=== PATIENT | male | born 1950 | race Caucasian/White ===

== ENCOUNTER 2020-12-17 14:59 | Outpatient (RCR) | payer MEDICARE, SELFPAY ==
[2017-04-27 11:19] VITALS: BMI 19.3
== END 2021-02-22 23:59 ==
LOC: IMMUN 14:59
PROVIDERS: PCP Family Medicine; Referring Provider Family Medicine; Visit Provider Family Medicine
DX: Z23 Encounter for immunization (principal)
CPT/HCPCS: 0001A; 0002A; 91300

== ENCOUNTER 2022-03-20 21:04 | Emergency (ER) | payer MEDICARE, SELFPAY ==
[2022-03-20 21:05] VITALS: BP 139/91; PULSE 117; RESP 16; TEMP 37.2; O2SAT 93; BMI 20.9
--- NOTE | 2022-03-20 21:43 | EDS_ITS ---
HPI History of Present Illness Chief Complaint: Complaint Detail of Chief Complaint: Urinary retention Informant: patient Onset/Context/Timing Onset: Yesterday Context: Sudden Onset Timing: Intermittent Quality: Unable to urinate since yesterday Location: Current Severity: Gone (Patient used his neighbor's catheter. Neighbor catheterized patient.) Maximum Severity: Severe Worsened by: History of enlarged prostate Relieved by: Neighbor catheterizing patient Associated Symptoms Associated Symptoms: Suprapubic discomfort Narrative Narrative: Patient is a 71-year-old male with history of hypercholesterolemia, hypertension and diabetes who presents because he was unable to urinate since yesterday. Neighbor apparently has the same problem. He will hold his neighbor to catheterize him. He had significant amount of urine. He does not recall when his last prostate exam was done. He has had problems with stream for some time. He presently has no symptoms. Prior similar symptoms: No Recent Illness/Hospitalization: No [facility] Medical History (Updated 03/20/22 @ 22:[address] Cornel Peralta MD) HTN (hypertension) Home Medications alfuzosin 10 mg tablet,extended release 24 hr (Uroxatral) 10 mg PO DAILY 04/18/17 [History Last Taken Unknown] atorvastatin 10 mg tablet 10 mg PO DAILY 04/18/17 [History Last Taken Unknown] olmesartan 40 mg-hydrochlorothiazide 25 mg tablet (Benicar HCT) 1 tab PO DAILY 04/18/17 [History Last Taken Unknown] verapamil 240 mg 24 hr capsule,extended release 240 mg PO DAILY 04/18/17 [History Last Taken 04/27/17 06:00] oxycodone-acetaminophen 5 mg-325 mg tablet 1 - 2 tab PO Q4H PRN PRN Pain #20 tabs 04/27/17 [Rx Last Taken Unknown] sulfamethoxazole 800 mg-trimethoprim 160 mg tablet 1 tab PO BID #14 TABLETS 03/20/22 [Rx Last Taken Unknown] Allergy/AdvReac Type Severity Reaction Status Date / Time No Known Allergies Allergy Verified 03/20/22 21:05 Family History no significant family his no significant family history Social History (Updated 03/20/22 @ 21:[address] Cornel Peralta MD) household members: none Smoking Status: Former smoker substance use type: does not use ROS ROS ED Constitutional Constitutional ED: Denies chills, fever(s), subjective, sweats or weight loss Cardiovascular Cardiovascular: Denies chest pain, orthopnea, palpitations, paroxysmal nocturnal dyspnea or racing heartbeat Respiratory/Chest Respiratory/Chest: Denies cough, dyspnea, dyspnea on exertion, orthopnea or paroxysmal nocturnal dyspnea Gastrointestinal Gastrointestinal: Reports abdominal pain; Denies constipation, diarrhea, melena, nausea or vomiting Genitourinary Genitourinary ED: Reports other Details: Inability urinate ; Denies dysuria, hematuria or urinary frequency Musculoskeletal Musculoskeletal: Denies arthralgias, back pain, myalgias or neck pain Neurologic Neurologic: Denies headache(s), paresthesias or weakness Hematologic/Lymphatic Hematologic/Lymphatic: Denies anemia or easy bruising EXAM Physical Exam Const Vital Signs: 03/20/22 21:05 Temperature 98.9 F Temperature Source Temporal Pulse Rate 117 H Respiratory Rate 16 Blood Pressure 139/91 H Blood Pressure Mean 107 Pulse Ox 93 Oxygen Delivery Method Room Air Positive well nourished and well developed General Appearance ED: well developed and NAD; Negative for cyanotic, diaphoretic or pallor HEENT Reports moist mucous membranes HEENT Narrative: Ears normal. Nares patent. Uvula midline. There is no erythema or exudate. Negative for trauma or tenderness Eyes PERRL and EOMs intact bilaterally General Eye ED: Negative for pale conjunctiva or scleral icterus Neck no lymphadenopathy, supple and no JVD Resp normal respiratory effort and clear to auscultation bilaterally Cardio regular rate, regular rhythm, S1 normal heart sound and S2 normal heart sound GI normal to inspection, nondistended, normoactive bowel sounds, non-tender and non-distended; Negative for hepatosplenomegaly Back/Spine no CVA tenderness Cervical Spine: Negative for cervical spine tenderness Thoracic Spine / Upper Back: Negative for thoracic spinal tenderness Lumbar Spine / Lower Back: Negative for lumbar spinal tenderness Extremity normal to inspection General Extremety ED: Negative for edema or tenderness General Extremity: Negative for edema Neuro oriented x3, CN's II-XII intact bilaterally and no sensory deficits noted Motor Exam: strength 5/5 throughout Psych mental status grossly normal Skin General Skin Exam: Negative for jaundice or pallor MDM MDM MDM Narrative Medical decision making narrative: Patient has an enlarged prostate on rectal exam. At 10:00 lithotomy position there is a very hard nodule noted. This raises concern for possible prostate cancer. Since patient had problems with urination will obtain basic metabolic panel to evaluate for renal injury. Flores was ordered. He will be referred to urology for follow-up. Lab Data Attestation: I reviewed the patient's lab results. Lab results narrative: Urine is consistent with infection. Urine culture was ordered. Patient received 1 g of Rocephin. Awaiting BMP results. Creatinine is elevated 1.50 from 1.25. Last creatinine level was obtained in 2017. Labs: Laboratory Results - last 24 hr 03/20/22 03/20/22 21:43 21:52 Sodium 135 L Potassium 4.2 Chloride 101 Carbon Dioxide 22.0 Anion Gap 12 BUN 25 H Creatinine 1.50 H Estim Creat Clear Calc 43.62 Est GFR (MDRD) Af Amer 59 L Est GFR (MDRD) Non-Af 49 L BUN/Creatinine Ratio 16.7 Glucose 126 H Calcium 8.8 Urine Color Yellow Urine Clarity Cloudy Urine pH 5.0 Ur Specific [place] 1.020 Urine Protein 500 H Urine Glucose (UA) Normal Urine Ketones 15 H Urine Occult Blood 250 H Urine Nitrite Negative Urine Bilirubin 1 H Urine Urobilinogen 1 H Ur Leukocyte Esterase 500 H Urine RBC > 100 SEEN Urine WBC 50-100 SEEN Ur Squamous Epith Cells 5-10 SEEN Urine Bacteria 4+ Coarse Granular Casts 5-10 SEEN Urine Mucus 0 SEEN Discharge Plan Triage Chief Complaint: Complaint ED Provider: Cornel Peralta Dx/Rx/DC Orders Clinical Impression: Acute urinary retention, Urinary tract infection, Prostate hypertrophy, Prostate nodule with urinary obstruction, Acute renal insufficiency Instructions: ED Flores Catheter, Care, ED Urinary Retention, Male, ED Bladder Infection, Male (Adult), ED Renal Insufficiency Prescriptions: New sulfamethoxazole-trimethoprim [sulfamethoxazole-trimethoprim] 800-160 mg tablet 1 tab PO BID Qty: 14 0RF No Action atorvastatin 10 MG tablet 10 mg PO DAILY Label Comments: CHOLESTEROL verapamil 240 MG capsule,ext rel. pellets 24 hr 240 mg PO DAILY Label Comments: BP olmesartan-hydrochlorothiazide [Benicar HCT] 1 TAB tablet 1 tab PO DAILY Label Comments: BP alfuzosin [Uroxatral] 10 MG tablet extended release 24 hr 10 mg PO DAILY Label Comments: PROSTATE oxycodone-acetaminophen 1 TABLET tablet 1 - 2 tab PO Q4H PRN PRN (Reason: Pain) Qty: 20 0RF Primary Care Provider: Chris Ziegler NP Referrals: Henry Wells MD [STAFF PHYSICIAN] - 5-7 Days Chris Ziegler NP, HUMIDIFIER ATTENDANT-C [Primary Care Provider] - Activity Restrictions/Additional Instructions: You will need to contact Dr. Wells's office tomorrow for follow-up in 5 to 7 days for repeat prostate exam and removal of Flores Take antibiotics until gone Disposition Disposition: Home, Self Care
[2022-03-20 21:49] LABS: Mucous, Urine 0 SEEN /hpf (<or=2+)
[2022-03-20 21:51] LABS: Glucose, Dipstick Normal (Normal); Ketone-Dipstick 15 mg/dl (Negative); Leukocyte Esterase-Dipstick 500 /ul (Negative); Nitrite-Dipstick Negative (Negative); Occult Blood-Urine 250 /ul (Negative); Protein-Dipstick 500 mg/dl (Negative); Urine Urobilinogen 1 mg/dl (Normal)
[2022-03-20 21:58] LABS: Urine Bilirubin Dipstick 1 mg/dL (Negative)
[2022-03-20 21:59] LABS: Color, Urine Yellow (Yellow); Urine Clarity Cloudy (Clear)
[2022-03-20 22:07] LABS: Red Blood Cells-Urine > 100 SEEN /hpf (0-5); Squamous Epithelial Cells - UA 5-10 SEEN /hpf (0-5); White Blood Cells 50-100 SEEN /hpf (0-5)
[2022-03-20 22:08] LABS: Bacteria 4+ /hpf (None Seen); Coarse Granular Cast 5-10 SEEN /lpf (0-5 /lpf)
[2022-03-20 22:12] LABS: Anion Gap 12 (5-15); BUN 25 mg/dL (7-18); BUN/Creat Ratio 16.7 RATIO (10-20); Calcium,Total 8.8 mg/dL (8.5-10.1); Chloride 101 mmol/L (98-107); EST Glomerular Filtration Rate 49 mL/min (>60); Est Glom Filt Rate - Afr Amer 59 mL/min (>60); Estimated Creatinine Clearance 43.62 ml/min; Glucose 126 mg/dL (74-106); Potassium 4.2 mmol/L (3.5-5.1); Sodium Level 135 mmol/L (136-145)
[2022-03-20] MEDS: Ceftriaxone 1 GM/50 ML BAG IV (22:33)
== END 2022-03-20 23:41 | disposition home or self-care (01) ==
PROVIDERS: Emergency Provider Emergency Medicine; PCP Nurse Practitioner Primary Care; Visit Provider Emergency Medicine
DX: R33.9 Retention of urine, unspecified (principal); N39.0 Urinary tract infection, site not specified; N40.1 Benign prostatic hyperplasia with lower urinary tract symptoms; N13.9 Obstructive and reflux uropathy, unspecified; Z87.891 Personal history of nicotine dependence
CPT/HCPCS: 51702; 80048; 81001; 87077; 87086; 87088; 87186; 96365; 99283; J7050; A4216

== ENCOUNTER 2022-03-24 07:55 | Emergency (ER) | payer MEDICARE, SELFPAY ==
[2022-03-24 07:57] VITALS: BP 133/78; PULSE 100; RESP 18; TEMP 36.7; O2SAT 95; BMI 19.6
--- NOTE | 2022-03-24 08:32 | EX.ED.DYSGE1 ---
HPI History of Present Illness Chief Complaint: Abn Labs Informant: patient and family Narrative Narrative: Patient was seen here on 20 March. He had a catheter placed for acute urinary retention. Creatinine was 1.5. He followed up in the office of his primary physician yesterday. Blood work was rechecked. I did just get a fax of his creatinine that went from 1.5-2.06. Patient feels fine. He has no complaints. He states he is eating and drinking. He thinks he is drinking enough fluid. The catheter is flowing well. He is getting plenty of urine. No fevers or chills. [facility] Medical History HTN (hypertension) Hyperlipidemia Home Medications alfuzosin 10 mg tablet,extended release 24 hr (Uroxatral) 10 mg PO DAILY 04/18/17 [History Last Taken Unknown] atorvastatin 10 mg tablet 10 mg PO DAILY 04/18/17 [History Last Taken Unknown] olmesartan 40 mg-hydrochlorothiazide 25 mg tablet (Benicar HCT) 1 tab PO DAILY 04/18/17 [History Last Taken Unknown] verapamil 240 mg 24 hr capsule,extended release 240 mg PO DAILY 04/18/17 [History Last Taken 04/27/17 06:00] sulfamethoxazole 800 mg-trimethoprim 160 mg tablet 1 tab PO BID #14 TABLETS 03/20/22 [Rx Last Taken Unknown] Allergy/AdvReac Type Severity Reaction Status Date / Time No Known Allergies Allergy Verified 03/24/22 07:59 Social History household members: none Smoking Status: Former smoker substance use type: does not use ROS ROS ED Constitutional Constitutional ED: Denies chills or fever(s) Eyes Eyes: Denies change in vision ENT ENT ED: Denies rhinorrhea Cardiovascular Cardiovascular: Denies chest pain or palpitations Respiratory/Chest Respiratory/Chest: Denies cough Gastrointestinal Gastrointestinal: Denies abdominal pain, diarrhea, nausea or vomiting Genitourinary Genitourinary ED: Reports other Details: No urinary complaints. Catheter draining well. Musculoskeletal Musculoskeletal: Denies back pain Integumentary Denies rash Neurologic Neurologic: Denies paresthesias or weakness Endocrine Endocrinology: Denies polydipsia or polyuria Hematologic/Lymphatic Hematologic/Lymphatic: Denies easy bleeding or easy bruising Allergic/Immunologic Allergic/Immunologic ED: Denies urticaria EXAM Physical Exam Const Vital Signs: 03/24/22 07:57 03/24/22 08:30 03/24/22 10:59 Temperature 98.0 F 98.8 F Temperature Source Temporal Oral Pulse Rate 100 97 Respiratory Rate 18 18 Respiratory Effort Normal Respiratory Pattern Normal Blood Pressure 133/78 H 127/77 H Blood Pressure Mean 96 93 Pulse Ox 95 95 Oxygen Delivery Method Room Air Room Air Positive well nourished and well developed General Appearance ED: well developed HEENT Reports moist mucous membranes Eyes EOMs intact bilaterally Neck no JVD Resp normal respiratory effort Cardio regular rate, regular rhythm and no murmurs GI normal to inspection, nondistended, normoactive bowel sounds, non-tender and non-distended GI Narrative: No pressure or palpable swelling over the bladder. Back/Spine no CVA tenderness Extremity normal to inspection Neuro oriented x3 Psych mental status grossly normal Skin no rashes or lesions noted MDM MDM MDM Narrative Medical decision making narrative: Patient patient CBC shows mild anemia. Electrolytes showed now decreasing creatinine. It was 1.5. It went up to just over 2.0. It is now coming back down. Urine shows no sign of infection. Patient's BUN to creatinine ratio is a little above 20. We have encouraged him to drink a little bit more fluids. Since the creatinine is only up about 1.25, I do not think he needs acute admission for this. He is asymptomatic. Ultrasound showed no sign of significant hydronephrosis. Catheter is draining well. He has an appointment with urologist on Sunday. I will write for repeat electrolytes on Sunday. If he develops symptoms, fevers, Flores not draining, flank pain or any other symptoms he should return. Lab Data Attestation: I reviewed the patient's lab results. Labs: Laboratory Results - last 24 hr 03/24/22 03/24/22 03/24/22 08:55 08:55 09:22 WBC 9.9 RBC 4.23 L Hgb 12.6 L Hct 38.6 L MCV 91.3 MCH 29.8 MCHC 32.6 RDW Std Deviation 44.6 H RDW Coeff of Сергей 13.2 Plt Count 271 MPV 9.9 Immature Gran % (Auto) 1.500 H Neut % (Auto) 84.0 H Lymph % (Auto) 6.2 L [place] % (Auto) 7.4 Eos % (Auto) 0.4 Baso % (Auto) 0.5 Absolute Neuts (auto) 8.3 H Absolute Lymphs (auto) 0.61 L Nucleated RBC % 0 Sodium 136 Potassium 4.5 Chloride 105 Carbon Dioxide 23.0 Anion Gap 8 BUN 36 H Creatinine 1.76 H Estim Creat Clear Calc 34.77 Est GFR (MDRD) Af Amer 49 L Est GFR (MDRD) Non-Af 41 L BUN/Creatinine Ratio 20.5 H Glucose 111 H Calcium 8.9 Urine Color Yellow Urine Clarity Clear Urine pH 5.0 Ur Specific [place] 1.010 Urine Protein 15 H Urine Glucose (UA) Normal Urine Ketones 5 H Urine Occult Blood 50 H Urine Nitrite Negative Urine Bilirubin Negative Urine Urobilinogen 1 H Ur Leukocyte Esterase 100 H Urine RBC 0-5 SEEN Urine WBC 0-5 SEEN Ur Squamous Epith Cells 0 SEEN Urine Bacteria 0 SEEN Urine Mucus 0 SEEN Radiography Diagnostic Testing: Clinical Impression(s) from Imaging Studies Renal Ultrasound 03/24/22 09:32 IMPRESSION: Mild degree of bilateral renal atrophy. No evidence of hydronephrosis. Electronically Signed: Joss Kirk MD at 10:36 EDT , Discharge Plan Triage Chief Complaint: Abn Labs ED Provider: Deangelo Shelley Dx/Rx/DC Orders Clinical Impression: Creatinine elevation, Flores catheter present Instructions: ED Flores Catheter, Care Prescriptions: No Action atorvastatin 10 MG tablet 10 mg PO DAILY Label Comments: CHOLESTEROL verapamil 240 MG capsule,ext rel. pellets 24 hr 240 mg PO DAILY Label Comments: BP olmesartan-hydrochlorothiazide [Benicar HCT] 1 TAB tablet 1 tab PO DAILY Label Comments: BP alfuzosin [Uroxatral] 10 MG tablet extended release 24 hr 10 mg PO DAILY Label Comments: PROSTATE sulfamethoxazole-trimethoprim [sulfamethoxazole-trimethoprim] 800-160 mg tablet 1 tab PO BID Qty: 14 0RF Other Ambulatory Orders: Miscellaneous Lab Procedure (Routine) Timeframe: [id number] Facility: [facility] - Location: Laboratory Ordered By: Dr. Deangelo Shelley Primary Care Provider: Chris Ziegler NP Referrals: Chris Ziegler THEATER TECHNICIAN, THEATER TECHNICIAN-C [Primary Care Provider] - 3-5 Days Activity Restrictions/Additional Instructions: Follow-up with the urologist as scheduled on Sunday. Disposition Disposition: Home, Self Care
[2022-03-24] MEDS: 0.9% Normal Saline 1,000 ML 1000 ML IV (08:47)
--- NOTE | 2022-03-24 08:57 | ED.RN ---
Pt has a leg bag on that was put in on the 4th. Bag was changed so that we can get a urine sample from him.
[2022-03-24 08:59] LABS: Absolute Lymphocyte Count 0.61 X10^3/uL (0.83-4.51); Absolute Neutrophil Count 8.3 X10^3/uL (2.0-7.7); Basophil# 0.05 X10^3/uL; Basophil% 0.5 % (0-1); Eosinophil# 0.04 X10^3/uL; Eosinophils% 0.4 % (0-5); Hematocrit 38.6 % (40-54); Hemoglobin 12.6 g/dL (13.0-16.5); Lymphocyte # 0.61 X10^3/ul (0.83-4.51); Lymphocyte % 6.2 % (19-41); Mean Corp Hgb Conc 32.6 g/dL (32-36); Mean Corpuscular Hgb 29.8 pg (27.0-32.0); Mean Corpuscular Volume 91.3 fL (80-94); Mean Platelet Vol. 9.9 fl (6.2-12.0); Monocyte# 0.73 X10^3/uL; Monocyte% 7.4 % (0-10); NRBC Flagged by Analyzer 0 % (0-5); Neutrophil # 8.31 X10^3/uL (2.7-7.7); Platelet Count 271 K/mm3 (150-450); RBC Distribution Width CV 13.2 % (11.6-14.6); RBC Distribution Width SD 44.6 fl (35.1-43.9); Red Blood Count 4.23 M/mm3 (4.6-6.2); White Blood Count 9.9 K/mm3 (4.4-11.0)
[2022-03-24 09:16] LABS: BUN 36 mg/dL (7-18); Creatinine, Serum 1.76 mg/dL (0.70-1.30); Glucose 111 mg/dL (74-106)
[2022-03-24 09:17] LABS: Anion Gap 8 (5-15); BUN/Creat Ratio 20.5 RATIO (10-20); Calcium,Total 8.9 mg/dL (8.5-10.1); Chloride 105 mmol/L (98-107); EST Glomerular Filtration Rate 41 mL/min (>60); Est Glom Filt Rate - Afr Amer 49 mL/min (>60); Estimated Creatinine Clearance 34.77 ml/min; Potassium 4.5 mmol/L (3.5-5.1); Sodium Level 136 mmol/L (136-145)
[2022-03-24 09:28] LABS: Bacteria 0 SEEN /hpf (None Seen); Mucous, Urine 0 SEEN /hpf (<or=2+); Squamous Epithelial Cells - UA 0 SEEN /hpf (0-5)
[2022-03-24 09:30] LABS: Color, Urine Yellow (Yellow); Glucose, Dipstick Normal (Normal); Ketone-Dipstick 5 mg/dl (Negative); Leukocyte Esterase-Dipstick 100 /ul (Negative); Nitrite-Dipstick Negative (Negative); Occult Blood-Urine 50 /ul (Negative); Protein-Dipstick 15 mg/dl (Negative); Urine Bilirubin Dipstick Negative (Negative); Urine Clarity Clear (Clear); Urine Urobilinogen 1 mg/dl (Normal)
--- NOTE | 2022-03-24 09:32 | US_ITS ---
STUDY: RENAL ULTRASOUND - COMPLETE REASON FOR EXAM: Male, 71 years old. JACE TECHNIQUE: Ultrasound evaluation of the kidneys was performed with real-time and static krishnamurthy-scale imaging. COMPARISON: None. FINDINGS: RIGHT KIDNEY: with mild renal atrophy. The right kidney measures 8.3 cm x 4.2 cm x 4.7 cm. There is a normal cortex of the right kidney. The renal cortex measures 1.2 cm. There is no right renal mass or cyst. There are no right renal calculi. There is no right hydronephrosis. DISTAL RIGHT URETER: There is non-visualization of the distal right ureter. There is no demonstrated right ureterovesical junction calculus. There is no demonstrated right ureteral jet. LEFT KIDNEY: with mild renal atrophy. The left kidney measures 9 cm x 4.4 cm x 5.1 cm. There is a normal cortex of the left kidney. The renal cortex measures 1.4 cm. There is no left renal mass or cyst. There are no left renal calculi. There is no left hydronephrosis. DISTAL LEFT URETER: There is non-visualization of the distal left ureter. There is no demonstrated left ureterovesical junction calculus. There is no demonstrated left ureteral jet. BLADDER: A MARSH catheter is seen within the decompressed urinary bladder. US/Kidney and Bladder IMPRESSION: Mild degree of bilateral renal atrophy. No evidence of hydronephrosis. Electronically Signed: Joss Kirk MD at 10:36 EDT ,
[2022-03-24 09:41] LABS: Red Blood Cells-Urine 0-5 SEEN /hpf (0-5); White Blood Cells 0-5 SEEN /hpf (0-5)
[2022-03-24 10:59] VITALS: BP 127/77; PULSE 97; RESP 18; TEMP 37.1; O2SAT 95
== END 2022-03-24 12:19 | disposition home or self-care (01) ==
PROVIDERS: Emergency Provider Emergency Medicine; PCP Nurse Practitioner Primary Care; Visit Provider Emergency Medicine
DX: R79.89 Other specified abnormal findings of blood chemistry (principal); E78.5 Hyperlipidemia, unspecified; Z79.899 Other long term (current) drug therapy; Z87.891 Personal history of nicotine dependence
CPT/HCPCS: 76770; 80048; 81001; 85025; 96360; 96361; 99283; J7030; A4216

== ENCOUNTER → 2022-03-27 | Outpatient (CLI) | payer MEDICARE, SELFPAY ==
[2022-03-27 09:14] LABS: Anion Gap 13 (5-15); BUN 21 mg/dL (7-18); BUN/Creat Ratio 14.3 RATIO (10-20); Chloride 99 mmol/L (98-107); Creatinine, Serum 1.47 mg/dL (0.70-1.30); EST Glomerular Filtration Rate 50 mL/min (>60); Est Glom Filt Rate - Afr Amer 60 mL/min (>60); Glucose 104 mg/dL (74-106); Potassium 3.7 mmol/L (3.5-5.1); Sodium Level 134 mmol/L (136-145)
== END | disposition home or self-care (01) ==
LOC: LAB 07:58
PROVIDERS: PCP Nurse Practitioner Primary Care; Visit Provider Emergency Medicine
DX: R79.89 Other specified abnormal findings of blood chemistry (principal)
CPT/HCPCS: 36415; 80048

== ENCOUNTER 2022-07-11 06:14 | Day surgery (SDC) | payer MEDICARE, SELFPAY ==
[2022-07-11 06:37] VITALS: BP 146/71; PULSE 112; RESP 16; TEMP 36.1; O2SAT 99; BMI 18.8
[2022-07-11] MEDS: Lactated Ringers 1,000 ML 15 ML IV (06:45)
--- NOTE | 2022-07-11 07:51 | HP.PCM_ITS ---
History and Physical Date of Admission: 07/11/22 Intake Vital Signs ? 03/24/2207:57 06/14/2208:30 Height 6 ft 6 ft Weight: 145 lb 139 lb BMI 19.6 18.8 BP 133/78 H 104/69 Blood Pressure Location ? Rt popliteal Position ? Sitting Respiration 18 16 Pulse 100 108 H Pulse Source ? Monitor Temp 98.0 F 97.3 F L Temp Source Temporal Temporal Pulse Oximetry (%) 95 95 Oxygen Delivery Method ? 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 HTN (hypertension) Hyperlipidemia Social History? household members:? none Smoking Status:? Former smoker substance use type:? does not use HPI HPI HPI: 71-year-old male here for right inguinal hernia and surveillance colonoscopy.? Patient has last colonoscopy 5 years ago and a tubular adenoma was identified and he was recommended to repeat in 5 years.? Patient denies abdominal pain or blood in the stool.? He also says that he is having right groin bulging and pain.? This happened about 6 months ago.? She was doing well since his hernia repair in 2017 until about 6 months ago when he experienced groin bulging and pain. ROS General General: No weight change, appetite, fatigue, colon cancer, breast cancer or weakness HEENT HEENT: No difficulty swallowing, eye injury, eye surgery, swollen glands or hoarseness Endo Endocrine: No thyroid disease, diabetes mellitus, thyroid cancer, Hair loss, heat intolerance or cold intolerance Skin Skin: No rash or changing moles Breast Breast: No left breast lump, right breast lump, nipple discharge, breast pain, abnormal mammogram, abnormal US or breast enlargement Musc Musculoskeletal: No back problems, arthritis, rheumatoid arthritis, gout or joint pain Cardio Cardiovascular: Yes high blood pressure; No murmur, pacemaker, heart disease, atrial fibrillation, heart attack, heart stent, palpitations, shortness of breat with exertion or chest pain Psych Psychiatric: No depression, anxiety or hearing voices Resp Respiratory: No shortness of breath, No sleep apnea, No cough, No COPD, No asthma, No emphysema and No wheezing Gastro Gastrointestinal: No abdominal pain, No nausea or vomiting, No diarrhea, No constipation, No blood in stool, No acid reflux, No hemorrhoids, No ulcers, No gallbladder problem and No black,tarry stools Dino Hematologic: No blood thinners, No blood disorders, No bleeding, No anemia and No blood clots Neuro Neurologic: No system reviewed and no additional complaints, except as documented, No as per HPI, No abnormal gait, No abnormal hearing, No abnormal movements, No abnormal speech, No behavioral changes, No burning sensations, No confusion, No convulsions, No disequilibrium, No dizziness, No localized weakness, No frequent falls, No headache(s), No lack of coordination, No loss of vision, No memory loss, No numbness, No other visual disturbances, No radicular pain, No restless legs, No sensory deficit, No syncope, No tingling, No tremor(s), No weakness and No other Exam Const General: cooperative Orientation: alert and oriented x3 [facility] Head: normal to inspection Neck Neck: normal visual inspection and full ROM Chest Chest palpation & inspection: normal inspection of the chest Resp Effort & Inspection: normal respiratory effort Auscultation: clear to auscultation bilaterally Cardio Rate: regular rate Rhythm: regular rhythm GI Inspection: non-distended Palpation: soft, hernia indirect inguinal on the right and nontender Skin General: no rashes or lesions noted Neuro General: patient alert and patient oriented x3 Extrem General: full ROM Psych Appearance: grossly normal Mental Status: mental status grossly normal Assessment and Plan Assessment and Plan (1) Recurrent right inguinal hernia: ?Status:?Acute ?Plan: The patient has recurrence of right inguinal hernia and I offered open inguinal hernia repair with mesh.? I discussed this with him in detail as well as the risks including but not limited to bleeding, infection, injury to spermatic cord, injury to bowel, chronic groin pain or recurrence.? Patient or stands the risks and will proceed with open right inguinal hernia repair with mesh. (2) History of colon polyps: ?Status:?Acute ?Plan: Patient had a tubular adenoma during his last colonoscopy in 2017.? I recommend that he have a repeat colonoscopy at least 1 week prior to hernia repair. I explained endoscopy in detail to the patient.? I explained the risks including but not limited to stroke or heart attack with anesthesia, perforation of the GI tract, bleeding, infection.? I explained that any of these could necessitate further emergency surgery.? The patient understands and all questions were answered sufficiently.? The patient wishes to proceed with procedure. Praveen Rocha MD Pager: [facility] [address] [place] [address], [address] [place] [address] Office: I have re-examined the patient. There are no clinical changes since date of exam.
--- NOTE | 2022-07-11 07:54 | OP.COLON_ITS ---
Patient Name: Karri Chester Procedure Date: 07/11/2022 7:16 AM Date of : 1950 Age: 71 Procedure: Colonoscopy Indications: High risk colon cancer surveillance: Personal history of colonic polyps Providers: Praveen Rocha MD Medicines: Monitored Anesthesia Care Patient Profile: Last Colonoscopy: 5 years ago. Complications: No immediate complications. Estimated blood loss: Minimal. Procedure: Pre-Anesthesia Assessment: - Prior to the procedure, a History and Physical was performed, and patient medications and allergies were reviewed. The patient's tolerance of previous anesthesia was also reviewed. The risks and benefits of the procedure and the sedation options and risks were discussed with the patient. All questions were answered, and informed consent was obtained. Prior Anticoagulants: The patient has taken no previous anticoagulant or antiplatelet agents. After reviewing the risks and benefits, the patient was deemed in satisfactory condition to undergo the procedure. After I obtained informed consent, the scope was passed under direct vision. Throughout the procedure, the patient's blood pressure, pulse, and oxygen saturations were monitored continuously. The Colonoscope was introduced through the anus and advanced to the descending colon. The colonoscopy was extremely difficult due to inadequate bowel prep. The patient tolerated the procedure well. The quality of the bowel preparation was poor. Scope In: 7:33:55 AM Scope Out: 7:49:30 AM Total Procedure Duration Time 0 hours 15 minutes 35 seconds Findings: A large amount of semi-solid stool was found in the entire colon, precluding visualization. Impression: - Preparation of the colon was poor. - Stool in the entire examined colon. - No specimens collected. Recommendation: - Discharge patient to home. - Resume previous diet. - Continue present medications. - Repeat colonoscopy in 1 week because the bowel preparation was poor. Procedure Code(s): --- Professional --- 68397, 53, Colonoscopy, flexible; diagnostic, including collection of specimen(s) by brushing or washing, when performed (separate procedure) Diagnosis Code(s): --- Professional --- Z86.010, Personal history of colonic polyps CPT copyright 2017 [employer]. All rights reserved. The codes documented in this report are preliminary and upon cytotechnologist supervisor review may be revised to meet current compliance requirements. Praveen Rocha MD 07/11/2022 7:54:15 AM This report has been signed electronically. Number of Addenda: 0 Note Initiated On: 07/11/2022 7:16 AM
[2022-07-11 07:55] VITALS: BP 146/71; BP 99/57; PULSE 89; RESP 18; TEMP 36.2; O2SAT 96
--- NOTE | 2022-07-11 07:55 | OP.CCLET_ITS ---
07/11/2022 Baldomero Quintero Re : Colonoscopy procedure for Karri Chester Dear Karlie This procedure was performed on Monday, July 11, 2022. My impressions and recommendations are as follows: Impressions : - Preparation of the colon was poor. - Stool in the entire examined colon. - No specimens collected. Recommendations : - Discharge patient to home. - Resume previous diet. - Continue present medications. - Repeat colonoscopy in 1 week because the bowel preparation was poor. My findings are described in the full procedure note, which is enclosed. If I can be of further assistance, please feel free to contact me at Doctor phone number(s): , Work: . Sincerely, Praveen Rocha MD 07/11/2022 7:54:15 AM This report has been signed electronically.
[2022-07-11 08:00] VITALS: BP 146/71; BP 97/73; PULSE 89; RESP 18; O2SAT 97
[2022-07-11 08:05] VITALS: BP 119/80; BP 146/71; PULSE 86; RESP 18; O2SAT 100
[2022-07-11 08:10] VITALS: BP 117/88; BP 146/71; PULSE 82; RESP 18; TEMP 36.2; O2SAT 100
[2022-07-11 08:32] VITALS: BP 146/71
== END 2022-07-11 08:45 | disposition home or self-care (01) ==
LOC: EN 06:15 → AC 07:12
PROVIDERS: PCP Nurse Practitioner Primary Care; Referring Provider Nurse Practitioner Primary Care; Visit Provider Surgery
PROC: 0DJD8ZZ Inspection of Lower Intestinal Tract, Via Natural or Artificial Opening Endoscopic (ICD-10-PCS; CPT 45378; principal; 2022-07-11 07:25)
DX: Z12.11 Encounter for screening for malignant neoplasm of colon (principal); E78.5 Hyperlipidemia, unspecified; I10 Essential (primary) hypertension; Z86.010 Personal history of colon polyps; Z79.899 Other long term (current) drug therapy; Z87.891 Personal history of nicotine dependence
CPT/HCPCS: G0105; J7120; J2405

== ENCOUNTER 2022-07-19 09:21 | Day surgery (SDC) | payer MEDICARE, SELFPAY ==
--- NOTE | 2022-07-13 11:02 | EKG12_ITS ---
Test Reason : PRE OP Blood Pressure : / mmHG Vent. Rate : 076 BPM Atrial Rate : 076 BPM P-R Int : 162 ms QRS Dur : 078 ms QT Int : 390 ms P-R-T Axes : 079 094 079 degrees QTc Int : 438 ms Sinus rhythm with Premature atrial complexes Septal infarct , age undetermined Abnormal ECG Confirmed by RANJIT WESTBROOK, BRENDA ([id number]), state editor JOELLE LAGUNAS ([id number]) on 07/14/2022 2:29:57 P M Referred By: Chris Ziegler Confirmed By:ERNIE CHURCH MD
[2022-07-13 12:38] LABS: Hematocrit 40.9 % (40-54); Hemoglobin 13.4 g/dL (13.0-16.5); Mean Corp Hgb Conc 32.8 g/dL (32-36); Mean Corpuscular Hgb 30.2 pg (27.0-32.0); Mean Corpuscular Volume 92.1 fL (80-94); Mean Platelet Vol. 10.5 fl (6.2-12.0); Platelet Count 208 K/mm3 (150-450); RBC Distribution Width CV 13.4 % (11.6-14.6); RBC Distribution Width SD 45.4 fl (35.1-43.9); Red Blood Count 4.44 M/mm3 (4.6-6.2)
[2022-07-13 12:50] LABS: International Normalized Ratio 1.1
[2022-07-13 12:51] LABS: Partial Thromboplast Time 26.7 Seconds (24.1-36.2)
[2022-07-13 13:09] LABS: AST(SGOT) 15 U/L (15-37); Alanine Aminotransfer ALT/SGPT 17 U/L (16-61); Albumin, Serum 3.6 g/dL (3.2-5.0); Alkaline Phosphatase 83 U/L (45-117); Anion Gap 6 (5-15); BUN 12 mg/dL (7-18); Calcium,Total 8.7 mg/dL (8.5-10.1); Chloride 106 mmol/L (98-107); EST Glomerular Filtration Rate 63 mL/min (>60); Est Glom Filt Rate - Afr Amer 76 mL/min (>60); Globulin 3.4 g/dL (2.2-4.2); Glucose 101 mg/dL (74-106); Potassium 4.1 mmol/L (3.5-5.1); Sodium Level 136 mmol/L (136-145)
[2022-07-19 10:02] VITALS: BP 119/68; PULSE 83; RESP 16; TEMP 35.9; O2SAT 100; BMI 18.6
[2022-07-19] MEDS: Lactated Ringers 1,000 ML 15 ML IV (10:08)
--- NOTE | 2022-07-19 10:38 | PCM.HP.BLA ---
History and Physical Date of Admission: 07/19/22 Intake Vital Signs ?? 03/24/2207:57? 06/14/2208:30 Height? 6 ft? 6 ft Weight:? 145 lb? 139 lb BMI? 19.6? 18.8 BP? 133/78 H? 104/69 Blood Pressure Location? ?? Rt popliteal Position? ?? Sitting Respiration? 18? 16 Pulse? 100? 108 H Pulse Source? ?? Monitor Temp? 98.0 F? 97.3 F L Temp Source? Temporal? Temporal Pulse Oximetry (%)? 95? 95 Oxygen Delivery Method? ?? 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 HTN (hypertension) Hyperlipidemia Social History? household members:? none Smoking Status:? Former smoker substance use type:? does not use HPI HPI HPI: 71-year-old male here for right inguinal hernia and surveillance colonoscopy.? Patient has last colonoscopy 5 years ago and a tubular adenoma was identified and he was recommended to repeat in 5 years.? Patient denies abdominal pain or blood in the stool.? He also says that he is having right groin bulging and pain.? This happened about 6 months ago.? She was doing well since his hernia repair in 2017 until about 6 months ago when he experienced groin bulging and pain. ROS General General: No weight change, appetite, fatigue, colon cancer, breast cancer or weakness HEENT HEENT: No difficulty swallowing, eye injury, eye surgery, swollen glands or hoarseness Endo Endocrine: No thyroid disease, diabetes mellitus, thyroid cancer, Hair loss, heat intolerance or cold intolerance Skin Skin: No rash or changing moles Breast Breast: No left breast lump, right breast lump, nipple discharge, breast pain, abnormal mammogram, abnormal US or breast enlargement Musc Musculoskeletal: No back problems, arthritis, rheumatoid arthritis, gout or joint pain Cardio Cardiovascular: Yes high blood pressure; No murmur, pacemaker, heart disease, atrial fibrillation, heart attack, heart stent, palpitations, shortness of breat with exertion or chest pain Psych Psychiatric: No depression, anxiety or hearing voices Resp Respiratory: No shortness of breath, No sleep apnea, No cough, No COPD, No asthma, No emphysema and No wheezing Gastro Gastrointestinal: No abdominal pain, No nausea or vomiting, No diarrhea, No constipation, No blood in stool, No acid reflux, No hemorrhoids, No ulcers, No gallbladder problem and No black,tarry stools Dino Hematologic: No blood thinners, No blood disorders, No bleeding, No anemia and No blood clots Neuro Neurologic: No system reviewed and no additional complaints, except as documented, No as per HPI, No abnormal gait, No abnormal hearing, No abnormal movements, No abnormal speech, No behavioral changes, No burning sensations, No confusion, No convulsions, No disequilibrium, No dizziness, No localized weakness, No frequent falls, No headache(s), No lack of coordination, No loss of vision, No memory loss, No numbness, No other visual disturbances, No radicular pain, No restless legs, No sensory deficit, No syncope, No tingling, No tremor(s), No weakness and No other Exam Const General: cooperative Orientation: alert and oriented x3 [facility] Head: normal to inspection Neck Neck: normal visual inspection and full ROM Chest Chest palpation & inspection: normal inspection of the chest Resp Effort & Inspection: normal respiratory effort Auscultation: clear to auscultation bilaterally Cardio Rate: regular rate Rhythm: regular rhythm GI Inspection: non-distended Palpation: soft, hernia indirect inguinal on the right and nontender Skin General: no rashes or lesions noted Neuro General: patient alert and patient oriented x3 Extrem General: full ROM Psych Appearance: grossly normal Mental Status: mental status grossly normal Assessment and Plan Assessment and Plan (1) Recurrent right inguinal hernia: ?Status:?Acute ?Plan: The patient has recurrence of right inguinal hernia and I offered open inguinal hernia repair with mesh.? I discussed this with him in detail as well as the risks including but not limited to bleeding, infection, injury to spermatic cord, injury to bowel, chronic groin pain or recurrence.? Patient or stands the risks and will proceed with open right inguinal hernia repair with mesh. Praveen Rocha MD Pager: [facility] [address] [place] [address] [address] [place] [address] Office: I have examined the patient and the H&P has been reviewed. There are no clinical changes since date of exam.
[2022-07-19] MEDS: Cefazolin 2 GM in 0.9% Normal Saline 100 ML IV (10:54)
--- NOTE | 2022-07-19 11:00 | HERN_PTH ---
PATIENT: FRANCIS BROWN Jr. [place] [facility] [id number] AGE/SX: 71/M ROOM: RE07/19/[address]: Dr. Praveen Rocha MD : [id number] BED: DIS: 07/19/2022 SPEC #: [id number] RECD: 07/19/22 13:46 STATUS: DANYELL WRIGHT #: [id number] KATHY: 07/19/22 11:[address]: Praveen Rocha DEPT: SURGICAL PATHOLOGY RECD BY: Karly Burdick ENTERED: 07/20/22 09:02 SP TYPE: Hernia OTHR DR: TEMI Quintero Tissues: HERNIA Procedures: Surgery Specimen Level II HEADER OPERATION: Inguinal hernia with mesh, recurrent PRE-OP DIAGNOSIS: Recurrent right inguinal hernia TISSUE SUBMITTED: Right inguinal hernia sac MICROSCOPIC DIAGNOSIS Right inguinal hernia sac, herniorrhaphy: Fibrosis and associated mild chronic inflammation. AM:prem 07/21/2022 MICROSCOPIC DESCRIPTION Slides are reviewed. GROSS DESCRIPTION Received in fixative is one container labeled with the patient's name and designated right inguinal hernia sac. The specimen consists of a glistening fragment of pink-mccauley tissue measuring 4 x 3.5 x 1 cm. Serial sections do not reveal mass lesions. Sonoscope Operator sections are submitted in one cassette. / AM:prem 07/20/2022 TC:5 [facility] [place]: [id number]
[2022-07-19] MEDS: Bupivacaine 0.25% 30 ML Vial (11:38)
[2022-07-19 11:54] VITALS: BP 119/68; BP 99/64; PULSE 79; RESP 15; TEMP 36.2; O2SAT 99
[2022-07-19 12:00] VITALS: BP 102/65; BP 119/68; PULSE 83; RESP 16; O2SAT 98
[2022-07-19 12:05] VITALS: BP 119/68; PULSE 80; RESP 16; TEMP 36.2; O2SAT 97
--- NOTE | 2022-07-19 12:06 | OP.PCM_ITS ---
Report of Operation Date of Procedure: 07/19/22 Pre-Operative Diagnosis: Recurrent right inguinal hernia Post-Operative Diagnosis: Same Surgery/Procedure Performed:: Recurrent right inguinal hernia repair with mesh Specimen's removed: Right inguinal hernia sac Description of Procedure: Patient was brought back to the operating room and general anesthesia was induced. The right groin was prepped and draped in usual sterile fashion. Next an incision was marked and then injected with local anesthetic and then an incision was made with a scalpel. It was deepened to the external aponeurosis using electrocautery. Next the external ring was identified and then the external aponeurosis was nicked with a scalpel and elevated and incised down to the external ring. Next self-retaining retractor was placed and a Muriel placed around the inguinal cord. The inguinal cord was dissected and the hernia sac was identified and dissected free. The hernia sac was opened and inspected and there appeared to be no contents adherent to it. Next under direct visualization was suture-ligated using 0 silk suture. Hernia sac was sent for pathology and the ligated portion was returned to the abdomen. Next the cord was elevated and a Bard keyhole mesh was tacked to the pubic tubercle using 2-0 PDS suture. Same was tacked to the shelving portion of the inguinal ligament using interrupted 2-0 PDS sutures. It was also sutured medially to the conjoined tendon using interrupted 2-0 PDS sutures. The tails were wrapped around the spermatic cord allowing for enough room to slip the pinky finger adjacent to the spermatic cord and then it was tied to itself. The tails were tucked under the external aponeurosis. The inguinal canal was irrigated and suctioned dry. The ilioinguinal nerve was spared during the procedure. Next the external aponeurosis was reapproximated from lateral to medial using a running 3-0 Vicryl suture. The subcutaneous Chandra's fascia was closed using interrupted 3-0 Vicryl suture. The skin was closed using a running 4-0 Monocryl suture and the Dermabond was applied. The scrotum was checked at the end the case to ensure both testicles were in the scrotum. Patient tolerated the p rocedure well and was awoken and brought to PACU in stable condition. Admit VTE Documentation VTE Mechan Device Prophylaxis: SCD's
--- NOTE | 2022-07-19 12:10 | EX.PCM.DISCH ---
Discharge Instructions Procedure Hernia Diet Discharge Diet: Light diet - advance as tolerated Activity Discharge Activity: May Not Drive (for 2-3 days or while taking narcotic pain meds.) and May Shower (tomorrow) Lifting Restrictions: 20 pounds for 6 weeks. Additional Activity Instructions:: Climbing stairs is fine, walking is encouraged. Sitting in bed may be uncomfortable. Sitting up using your lateral muscles (sitting up sideways) is usually more comfortable. Do not drive, work heavy equipment of sign legal documents for 24 hours. If your hernia repair was an inguiual repair, you may have scrotal swelling, an ice pack and/or athletic support can provide more comfort. Pain medications may cause nausea, you should typically eat light foods as you take your pain medications. Pain medications may also cause constipation. If you have difficulty with this, discuss with your doctor. Dressing / Incision Call your doctor if your incision/area has: Continuous Slow Oozing, Sudden Increased Bleeding, Increased Pain/ Swelling, Increased Redness and Foul Smelling Discharge Call your doctor if you observe: Fever of 101 or Higher Suture Line Care: Avoid Pulling/Pushing and Avoid Pinching/Bending Cleanse incision/area with: Soap & Water Follow Up Care Please Follow Up With: Praveen Rocha MD When: Please call to schedule 2 week follow up appointment. [phone] Test Results: Test results from this visit will be discussed in further detail at your follow-up appointment, if applicable. Discharge Plan Admission Attending Provider: Praveen Rocha Primary Care Provider: Chris Ziegler NP Discharge Orders/Prescriptions Prescriptions: New oxycodone 5 mg tablet 5 - 10 mg PO Q4H PRN (Reason: pain) 5 Days Qty: 30 0RF No Action tamsulosin 0.4 mg capsule 0.4 mg PO QHS olmesartan-hydrochlorothiazide 20-12.5 mg tablet 1 tab PO DAILY atorvastatin 10 MG tablet 10 mg PO DAILY Label Comments: CHOLESTEROL verapamil 240 MG capsule,ext rel. pellets 24 hr 240 mg PO DAILY Label Comments: BP Referrals / Follow Up: Chris Ziegler NP, SOLDER DEPOSIT OPERATOR-C [Primary Care Provider] - Disposition Disposition (needs filled in before D/C Order can be placed): Home, Self Care
[2022-07-19 12:15] VITALS: BP 106/72; BP 119/68; PULSE 75; RESP 15; TEMP 36.2; O2SAT 99
[2022-07-19 13:45] VITALS: BP 119/68; BP 121/78; PULSE 76; RESP 18; O2SAT 99
== END 2022-07-19 14:05 | disposition home or self-care (01) ==
LOC: SDC 09:28 → AC 09:33
PROVIDERS: Anesthesiology; PCP Nurse Practitioner Primary Care; Referring Provider Nurse Practitioner Primary Care; Visit Provider Surgery
DX: K40.91 Unilateral inguinal hernia, without obstruction or gangrene, recurrent (principal); I10 Essential (primary) hypertension; E78.5 Hyperlipidemia, unspecified; Z87.891 Personal history of nicotine dependence; Z79.899 Other long term (current) drug therapy; R10.9 Unspecified abdominal pain
CPT/HCPCS: 49520; 00830; 36415; 80048; 80076; 85027; 85610; 85730; 88302; 93005; J7120; C1781; J2405